=== PATIENT | male | born 1950 | race Caucasian/White ===

== ENCOUNTER 2016-11-09 11:47 | Inpatient (IN) | payer OTHER, MEDICARE ==
[~2016-11-09] VITALS: Ht 177.8 cm; Wt 89.7 kg
[~2016-11-09 11:47] MED LIST: ATEN100 PO; ATOR40TA49 PO; CANA1TAB4; CITA10TA4 PO; CITA20 PO; CLON.2 PO; GLIP5 PO; LORA-474 PO; MIRT30 PO; VALS160 PO; VALT500T PO; VITA400T2
[2016-11-09 11:49] VITALS: BP 200/91; PULSE 94; RESP 12; TEMP 97.9; O2SAT 98
--- NOTE | 2016-11-09 15:07 | PD ---
HPI Chief Complaint: Psychiatric Symptoms Time Seen by Provider: 15:04 Travel History International Travel<30 days: No Contact w/Intl Traveler<30days: No Traveled to known affect area: No History of Present Illness HPI Patient is a 66-year-old male with a history of depression, HIV and hypertension and diabetes presenting voluntarily for worsening depression and suicidal ideation. He states he has not been eating and drinking much lately has had worsening depression over the last several days. States he stopped taking his medications today in an attempt to harm himself but denies any ingestions or planning by other methods. He states that his HIV, diabetes and blood pressure are typically well controlled. Last CD4 and viral loads were done one month prior and he does not know the exact number but states that everything was normal. He denies any hallucinations. Endorses anhedonia and feels withdrawn from life. He denies headache, dizziness, fever, nausea, vomiting, chest pain, shortness of breath and abdominal pain. He denies tobacco , ethanol and illicit drug use. PFSH Past Medical History Anxiety: No Depression: Yes Cancer: No Cardiovascular Problems: No Diabetes: Yes (Type II) Headaches: No Immune Disorder: Yes (HIV) Psychiatric: No Seizures: No Thyroid Disease: Yes Social History Alcohol Use: No Tobacco Use: No Substance Use: No Allergies-Medications (Allergen,Severity, Reaction): Coded Allergies: No Known Allergies (Unverified , 11/09/16) Reported Meds & Prescriptions Reported Meds & Active Scripts Active Review of Systems Except as stated in HPI: all other systems reviewed are Neg Physical Exam Narrative GENERAL: Well-developed and well-nourished adult male in no acute distress. SKIN: Warm and dry. Slightly decreased turgor without tenting. HEAD: Normocephalic and atraumatic. EYES: PERRL bilaterally, 5mm. EOMI bilaterally. No injection or icterus present. No proptosis. Lids without edema or erythema. ENT: Buccal mucosa pink and moist. Oropharynx free of erythema, tonsillar hypertrophy, masses, swelling, asymmetry and exudates. Uvula midline and airway patent. NECK: Supple, no midline tenderness, crepitus or step-offs. Trachea midline, no JVD. No cervical or facial lymphadenopathy. CARDIOVASCULAR: Regular rate and rhythm without murmurs, rubs, clicks or gallops. Radial and posterior tibial pulses 2+ bilaterally. No pedal edema. RESPIRATORY: Clear to auscultation bilaterally with symmetrical rise and fall, no distress or use of accessory muscles. GASTROINTESTINAL: Non-tender, non-distended. Normal bowel sounds all 4 quadrants. No masses or organomegaly present. MUSCULOSKELETAL: No gait disturbances. Patient freely moving all four extremities spontaneously. Extremities without clubbing, cyanosis, or edema. No obvious deformities. NEUROLOGIC: CN II-XII grossly intact. Awake and alert. Motor grossly within normal limits. Normal speech. PSYCHIATRIC: Disinterested. Flat affect. Data Data Last Documented VS Vital Signs Date Time Temp Pulse Resp B/P Pulse Ox O2 Delivery O2 Flow Rate FiO2 11/09/16 16:41 78 18 175/98 99 Room Air 11/09/16 11:49 97.9 Orders Complete Blood Count With Diff (11/09/16 15:03) Comprehensive Metabolic Panel (11/09/16 15:03) Drug Screen, Random Urine (11/09/16 15:03) Alcohol (Ethanol) (11/09/16 15:03) Salicylates (Aspirin) (11/09/16 15:03) Tylenol (Acetaminophen) (11/09/16 15:03) Psych Screen (11/09/16 15:03) Atenolol (Tenormin) (11/09/16 15:15) Sodium Chlor 0.9% 1000 Ml Inj (Ns 1000 M (11/09/16 15:09) Labs Laboratory Tests Test 11/09/16 11/09/16 15:05 15:50 White Blood Count 10.4 TH/MM3 Red Blood Count 4.33 MIL/MM3 Hemoglobin 14.0 GM/DL Hematocrit 41.6 % Mean Corpuscular Volume 96.1 FL Mean Corpuscular Hemoglobin 32.2 PG Mean Corpuscular Hemoglobin 33.5 % Concent Red Cell Distribution Width 14.4 % Platelet Count 301 TH/MM3 Mean Platelet Volume 9.6 FL Neutrophils (%) (Auto) 61.4 % Lymphocytes (%) (Auto) 29.2 % Monocytes (%) (Auto) 7.4 % Eosinophils (%) (Auto) 1.3 % Basophils (%) (Auto) 0.7 % Neutrophils # (Auto) 6.4 TH/MM3 Lymphocytes # (Auto) 3.0 TH/MM3 Monocytes # (Auto) 0.8 TH/MM3 Eosinophils # (Auto) 0.1 TH/MM3 Basophils # (Auto) 0.1 TH/MM3 CBC Comment DIFF FINAL Differential Comment Sodium Level 143 MEQ/L Potassium Level 4.6 MEQ/L Chloride Level 110 MEQ/L Carbon Dioxide Level 23.5 MEQ/L Anion Gap 10 MEQ/L Blood Urea Nitrogen 24 MG/DL Creatinine 1.01 MG/DL Estimat Glomerular Filtration 74 ML/MIN Rate Random Glucose 113 MG/DL Calcium Level 9.5 MG/DL Total Bilirubin 0.3 MG/DL Aspartate Amino Transf 44 U/L (AST/SGOT) Alanine Aminotransferase 43 U/L (ALT/SGPT) Alkaline Phosphatase 36 U/L Total Protein 7.7 GM/DL Albumin 3.5 GM/DL Salicylates Level LESS THAN 1.7 MG/DL Acetaminophen Level LESS THAN 2.0 MCG/ML Ethyl Alcohol Level LESS THAN 3 MG/DL Urine Opiates Screen NEG Urine Barbiturates Screen NEG Urine Amphetamines Screen NEG Urine Benzodiazepines Screen NEG Urine Cocaine Screen NEG Urine Cannabinoids Screen NEG MDM Medical Decision Making Medical Screen Exam Complete: Yes Emergency Medical Condition: Yes Interpretation(s) Laboratory Tests Test 11/09/16 11/09/16 15:05 15:50 White Blood Count 10.4 TH/MM3 (4.0-11.0) Red Blood Count 4.33 MIL/MM3 (4.50-5.90) Hemoglobin 14.0 GM/DL (13.0-17.0) Hematocrit 41.6 % (39.0-51.0) Mean Corpuscular Volume 96.1 FL (80.0-100.0) Mean Corpuscular Hemoglobin 32.2 PG (27.0-34.0) Mean Corpuscular Hemoglobin 33.5 % Concent (32.0-36.0) Red Cell Distribution Width 14.4 % (11.6-17.2) Platelet Count 301 TH/MM3 (150-450) Mean Platelet Volume 9.6 FL (7.0-11.0) Neutrophils (%) (Auto) 61.4 % (16.0-70.0) Lymphocytes (%) (Auto) 29.2 % (9.0-44.0) Monocytes (%) (Auto) 7.4 % (0.0-8.0) Eosinophils (%) (Auto) 1.3 % (0.0-4.0) Basophils (%) (Auto) 0.7 % (0.0-2.0) Neutrophils # (Auto) 6.4 TH/MM3 (1.8-7.7) Lymphocytes # (Auto) 3.0 TH/MM3 (1.0-4.8) Monocytes # (Auto) 0.8 TH/MM3 (0-0.9) Eosinophils # (Auto) 0.1 TH/MM3 (0-0.4) Basophils # (Auto) 0.1 TH/MM3 (0-0.2) CBC Comment DIFF FINAL Differential Comment Sodium Level 143 MEQ/L (136-145) Potassium Level 4.6 MEQ/L (3.5-5.1) Chloride Level 110 MEQ/L (98-107) Carbon Dioxide Level 23.5 MEQ/L (21.0-32.0) Anion Gap 10 MEQ/L (5-15) Blood Urea Nitrogen 24 MG/DL (7-18) Creatinine 1.01 MG/DL (0.60-1.30) Estimat Glomerular Filtration 74 ML/MIN (>89) Rate Random Glucose 113 MG/DL (74-106) Calcium Level 9.5 MG/DL (8.5-10.1) Total Bilirubin 0.3 MG/DL (0.2-1.0) Aspartate Amino Transf 44 U/L (15-37) (AST/SGOT) Alanine Aminotransferase 43 U/L (12-78) (ALT/SGPT) Alkaline Phosphatase 36 U/L (45-117) Total Protein 7.7 GM/DL (6.4-8.2) Albumin 3.5 GM/DL (3.4-5.0) Salicylates Level LESS THAN 1.7 MG/DL (2.8-20.0) Acetaminophen Level LESS THAN 2.0 MCG/ML (10.0-30.0) Ethyl Alcohol Level LESS THAN 3 MG/DL (0-5) Urine Opiates Screen NEG (NEG) Urine Barbiturates Screen NEG (NEG) Urine Amphetamines Screen NEG (NEG) Urine Benzodiazepines Screen NEG (NEG) Urine Cocaine Screen NEG (NEG) Urine Cannabinoids Screen NEG (NEG) Differential Diagnosis Dehydration versus malnutrition versus SI versus depression versus anxiety versus bipolar disorder versus schizophrenia versus substance abuse versus mood disorder versus personality disorder versus adjustment disorder Narrative Course Patient is a 66-year-old male with a history of depression, HIV, retention and diabetes presenting voluntarily with worsening depression, anhedonia, feeling hopeless and passive suicide attempt by stopping his medications today. CD4 counts were done one month prior as well as viral load which were normal per patient. He is hypertensive with systolic 190 and heart rate is in the mid 90s on exam, he denies any chest pain or headache at this time. Was given 1 L normal saline bolus as he is slightly increased skin turgor and reports reduced intake. Also given his atenolol 100 mg by mouth. Ordered labs for psychiatric clearance. CBC shows WBC 10.4, RBC 4.33. Rule out conscious chloride 110. BUN 24, creatinine 1.01 which are chronic. AST 44, ALT 43, ALP 36. Ethanol, salicylates and Tylenol less than detectable. UDS negative. Patient's blood pressure was lowered to 175/98 and heart rate was 78 after his atenolol was given. He is medically cleared to proceed with psych evaluation. Diagnosis Primary Impression: Depression with suicidal ideation Additional Impression: Hypertension Qualified Code: I10 - Essential hypertension Condition: Stable Fitz Eddy III Nov 09, 2016 15:07
[2016-11-09] MEDS ORDERED: SODIUM CHLOR 0.9% 1000 ML INJ 1,000 ML IV SCH (15:09)
[2016-11-09] MEDS ORDERED: ATENOLOL 100 MG TAB PO ONE (15:15)
[2016-11-09 16:08] LABS: AUTOMATED NEUTROPHIL # 6.4 TH/MM3 (1.8-7.7); BASOPHIL # 0.1 TH/MM3 (0-0.2); BASOPHIL % 0.7 % (0.0-2.0); EOSINOPHIL # 0.1 TH/MM3 (0-0.4); EOSINOPHIL % 1.3 % (0.0-4.0); HEMATOCRIT 41.6 % (39.0-51.0); HEMO FLAGS DIFF FINAL; LYMPH % 29.2 % (9.0-44.0); MEAN CELL VOLUME 96.1 FL (80.0-100.0); MEAN CORPUSCULAR HEMOGLOBIN 32.2 PG (27.0-34.0); MEAN CORPUSCULAR HGB CONC 33.5 % (32.0-36.0); MONO % 7.4 % (0.0-8.0); NEUT % 61.4 % (16.0-70.0); PLATELET COUNT 301 TH/MM3 (150-450); RED BLOOD COUNT 4.33 MIL/MM3 (4.50-5.90); RED CELL DISTRIBUTION WIDTH 14.4 % (11.6-17.2); WHITE BLOOD COUNT 10.4 TH/MM3 (4.0-11.0)
[2016-11-09 16:26] LABS: AMPHETAMINE, URINE NEG (NEG); BARBITURATES, URINE NEG (NEG); COCAINE, URINE NEG (NEG)
[2016-11-09 16:32] LABS: ALKALINE PHOSPHATASE 36 U/L (45-117); ALT (GPT) 43 U/L (12-78); ANION GAP 10 MEQ/L (5-15); AST (GOT) 44 U/L (15-37); BICARBONATE 23.5 MEQ/L (21.0-32.0); BLOOD UREA NITROGEN 24 MG/DL (7-18); CHLORIDE 110 MEQ/L (98-107); GLOMERULAR FILTRATION RATE 74 ML/MIN (>89); POTASSIUM 4.6 MEQ/L (3.5-5.1); SODIUM (NA) 143 MEQ/L (136-145); TOTAL BILIRUBIN ADULT 0.3 MG/DL (0.2-1.0)
[2016-11-09 16:34] LABS: ACETAMINOPHEN LESS THAN 2.0 MCG/ML (10.0-30.0)
[2016-11-09 16:41] VITALS: BP 175/98; PULSE 78; RESP 18; O2SAT 99
[2016-11-09 19:39] VITALS: BP 147/86; PULSE 72; RESP 18; O2SAT 97
[2016-11-09] MEDS ORDERED: CANA1TAB PO (20:37)
[2016-11-09] MEDS ORDERED: MIRT30TA PO (20:37)
[2016-11-09] MEDS ORDERED: CITA10TA4 PO (20:37)
[2016-11-09] MEDS ORDERED: GLIP5TAB8 PO (20:37)
[2016-11-09] MEDS ORDERED: MAGNESIUM HYDROXIDE SUSP 30 ML CUP PO PRN (21:30)
[2016-11-09] MEDS ORDERED: LORazepam 2 MG/ML VIAL IM PRN (21:30)
[2016-11-09] MEDS ORDERED: ALUMINUM/MAGNESIUM/SIMETH 30 ML CUP PO PRN (21:30)
[2016-11-09] MEDS: MIRTAZAPINE 15 MG TAB PO SCH (22:05)
[2016-11-09 22:40] VITALS: BP 145/79; PULSE 72; RESP 16; TEMP 98.1
[2016-11-10 05:55] VITALS: BP 157/90; PULSE 73; RESP 16; TEMP 97.8; O2SAT 100
--- NOTE | 2016-11-10 11:58 | HHI.HP ---
Provisional Diagnosis Admission Date Nov 09, 2016 at 21:21 [place] I. Major depressive disorder chronic recurrent moderate [place] II. No diagnosis [place] III. History of HIV diabetes and high blood pressure [place] IV. Moderate stress difficulty coping [place] V. GAF of 45 Certification of Person's Competence To Provide Express and Informed Consent I have personally examined Cali Fountain , a person being served at [facility] on, Nov 10, 2016 11:44. Express and informed consent means consent voluntarily given in writing, by a competent person, after sufficient explanation and disclosure of the subject matter involved to enable the person to make a knowing and willful decision without any element of force, fraud, deceit, duress, or other form of constraint or coercion. This person is 18 years of age or older, is not now known to be incompetent to consent to treatment with a guardian advocate, and does not have a health care surrogate or proxy currently making medical treatment decisions. I have found this person to be one of the following: [x] Competent to provide express and informed consent, as defined above, for voluntary admission to this facility and is competent to provide express and informed consent for treatment. He/she has the consistent capacity to make well reasoned, willful, and knowing decisions concerning his or her medical or mental health treatment. The person fully and consistently understands the purpose of the admission for examination/placement and is fully capable of personally exercising all rights assured under [place] Incompetent to provide express and informed consent to voluntary admission, and this is incompetent to provide express and informed consent to treatment. The person must be transferred to involuntary status and a petition for a guardian advocate filed with the Circuit Court. [] Refusing to provide express and informed consent to voluntary admission but is competent to provide express and informed consent for treatment. The person must be discharged or transferred to involuntary status. Form shall be completed within 24 hours of a person's arrival at the receiving facility and filed in the clinical record of each person: 1. Admitted on a voluntary basis 2. Permitted to provide express and informed consent to his/her own treatment 3. Allowed to transfer from involuntary to voluntary status 4. Prior to permitting a person to consent to his or her own treatment after having been previously found incompetent to consent to treatment. History of Present Illness Capacity: Has Capacity HPI This is a 66-year-old white male who lives alone has a history of HIV diabetes and high blood pressure. He came came to the emergency room voluntarily for help because he has been increasingly feeling depressed frustrated lonely and isolated. He was feeling unhappy and had stopped taking all the medication in an attempt to end his life. Reportedly he does not have much in terms of the support he lives alone. He denied any plan for suicide. At times he feels helpless and hopeless and unmotivated. He feels like he has nothing to live for. For the past month or so he has no appetite he has been having difficulty sleeping. Has anhedonia. And his [id number] called the police and he came for help. At the present time patient denied any active auditory or visual hallucinations. He denies any suicidal ideation intentions or plan he reported that he made a mistake in not taking the medication his willing to take the medication. Patient claimed that he is afraid of dying. Patient denied any previous suicide attempts. Patient did not give any history of mood swings. Review of Systems Except as stated in HPI: all other systems reviewed are Neg Psychiatric: COMPLAINS OF: Mood changes, Depression, Suicidal Ideation Past Psych History Psychological trauma history Patient denied any physical verbal or sexual abuse growing up his childhood was happy Violence risk - others (6 mos) Patient denied Violence risk - self (6 mos) Patient has been increasingly feeling depressed and having trouble sleeping and with his appetite and have no desire to live but denied any suicidal ideation or plan Substance Abuse History Drugs/Alcohol past 12 months Patient denies any history of alcohol or drug abuse in the past 12 months Past Family Social History Coded Allergies: No Known Allergies (Unverified , 11/09/16) Reported Medications Citalopram 10 Mg Tab10 Mg PO DAILY #30 TAB Ref 0 11/09/16 Mirtazapine 30 Mg Tab30 Mg PO HS #30 TAB Ref 0 11/09/16 Glipizide 5 Mg Tab5 Mg PO BIDAC #60 TAB Ref 0 Take 30 minutes before a meal 11/09/16 Canagliflozin-Metformin (Invokamet)50-500 Mg Tab1 Tab PO BID #60 TAB Ref 0 Take with meals. Avoid ethanol. 11/09/16 Current Medications Medications (Trade) Dose Ordered Sig/Chung Route Start Time Stop Time Status Last Admin (Remeron) 30 mg HS PO 11/09/16 21:25 1/3/17 22:05 (Ativan) 1 mg Q6H PRN PO 11/09/16 21:30 (Ativan Inj) 1 mg Q6H PRN IM 11/09/16 21:30 (Tylenol) 650 mg Q4H PRN PO 11/09/16 21:30 (Milk Of Magnesia Liq) 30 ml DAILY PRN PO 11/09/16 21:30 (Mag-Al Plus Susp Liq) 30 ml Q6H PRN PO 11/09/16 21:30 Family History Negative for any emotional difficulty nervous breakdown suicide attempt or alcoholism Social History Patient was born in [place]. He has 3 brothers. He is number third. He was close to both of his parents will . His childhood was described as happy. He denied any physical verbal or sexual abuse growing up. He did finish high school and has Masters degree in education and worked as a teacher and retired. He has never been and has no children. He denied any history of alcohol or drug use and/or abuse or any legal difficulty. He has a history of depression and was hospitalized here. Patient's Strengths (min. 2) Patient is cooperative and willing to take the medication Physical Exam Patient denies any acute medical problem. Denied any chest pain shortness of breath or any other medical issues. Please see the emergency room evaluation for detail his vital signs are normal and stable Vital Signs Vital Signs Date Time Temp Pulse Resp B/P Pulse Ox O2 Delivery O2 Flow Rate FiO2 11/10/16 05:55 97.8 73 16 157/90 100 11/09/16 19:39 Room Air Mental Status Examination This is a 66-year-old white male who looks about the same as his stated age was alert oriented 3 cooperative casually dressed. His speech was slow coherent and appropriate. Without any evidence of loose associations or flights of ideas or pressure speech. His mood was described as feeling depressed and frustrated but denied any active and passive suicidal ideation intentions or plan. He is willing to take the medication and follow-up as an outpatient. Patient also denied any active auditory or visual hallucinations. No pramod delusions were noted. He seems to be of average intelligence with fairly good memory his insight is fair and his judgment seems to be okay on hypothetical situation. His gait was normal his language was normal his fund of knowledge was average Assessment & Plan Problem List: (1) Major depressive disorder, recurrent, moderate ICD Code: F33.1 Assessment & Plan Estimated LOS: 5 days. This is a 66-year-old white to male who was admitted because of increasing symptoms of depression anhedonia feeling hopeless and helpless. Patient had stopped taking the medication. We will titrate the medication and help lift her depression.. Admit to observe evaluate and treat. Titrate the medication according to patient's need and response. Patient will participate in all the therapeutic activity on the floor. We will resume his medication. Side effect another alternative treatment were explained to the patient. We will ask social worker assistant to assist in aftercare and discharge planning. Request HC Surrog/Guard Advoc?: No Oracio Juárez MD Nov 10, 2016 11:58
[2016-11-10 12:00] VITALS: BP 146/90; PULSE 86
[2016-11-10] MEDS: CITALOPRAM HYDROBROMIDE 40 MG TAB PO SCH (13:05)
--- NOTE | 2016-11-10 13:54 | PD.CONS ---
[facility] team Reason for Consult MEDICAL MANAGEMENT FOR HTN, DIABETES AND HIV Primary Care Physician No Primary Care Physician Diagnoses: History of Present Illness Patient is a 66-year-old male with primary history of depression, HIV, hypertension, DM who came in to the hospital voluntarily for worsening depression and suicidal ideation. As per ED report, patient states that he is not eating and drinking much lately, worsening depression over the last several days, stopped taking his medications and attempt to harm himself but denies any ingestion or planning by other methods. He is now admitted to inpatient psychiatry unit for further evaluation. Consulted for medical management. Patient seen today. States he's been doing well. Confirmed history of hypertension, diabetes, HIV. States that he doesn't want to take his HIV meds anymore - being followed by Dr. Reyes infectious disease. Patient is taking Genvoya - Elvitegravir, cobicistat, emtricitabine, and tenofovir. He agrees to continue taking metformin and glipizide. Patient denies pain and discomfort. Denies SOB/ dyspnea. Denies chestpain, palpitations, headaches, dizziness. Denies fevers, chills, n/v/d. Review of Systems Constitutional: DENIES: Fever, Chills, Change in appetite Endocrine: DENIES: Heat/cold intolerance Eyes: DENIES: Blurred vision, Eye pain Respiratory: DENIES: Cough, Wheezing, Sputum production, Shortness of breath Cardiovascular: DENIES: Chest pain, Palpitations, Dyspnea on Exertion, Lower Extremity Edema Gastrointestinal: DENIES: Abdominal pain, Bloody stools, Constipation, Diarrhea , Nausea, Vomiting Genitourinary: DENIES: Urinary frequency, Urgency Musculoskeletal: DENIES: Joint pain Neurologic: DENIES: Abnormal gait, Poor Balance Psychiatric: COMPLAINS OF: Depression Past Family Social History Allergies: Coded Allergies: No Known Allergies (Unverified , 11/09/16) Past Medical History HIV HTN DM Depression Thyroid disease HLD Past Surgical History Appendectomy Reported Medications Citalopram 10 mg by mouth daily Mirtazapine 30 mg by mouth daily at bedtime Canagliflozin andmetformin 15521 milligrams tab by mouth twice a day Glipizide 5 mg by mouth twice a day with meals Active Ordered Medications Current Medications Medications (Trade) Dose Ordered Sig/Chung Route Start Time Stop Time Status Last Admin (Remeron) 30 mg HS PO 11/09/16 21:25 11/09/16 22:05 (Ativan) 1 mg Q6H PRN PO 11/09/16 21:30 (Ativan Inj) 1 mg Q6H PRN IM 11/09/16 21:30 (Tylenol) 650 mg Q4H PRN PO 11/09/16 21:30 (Milk Of Magnesia Liq) 30 ml DAILY PRN PO 11/09/16 21:30 (Mag-Al Plus Susp Liq) 30 ml Q6H PRN PO 11/09/16 21:30 (CeleXA) 40 mg DAILY PO 11/10/16 12:00 11/10/16 13:05 Family History Noncontributory Social History Denies alcohol use Denies tobacco use Denies illicit drug use Physical Exam Vital Signs Vital Signs Date Time Temp Pulse Resp B/P Pulse Ox O2 Delivery O2 Flow Rate FiO2 11/10/16 12:00 86 146/90 11/10/16 05:55 97.8 73 16 157/90 100 11/09/16 22:40 98.1 72 16 145/79 11/09/16 19:39 72 18 147/86 97 Room Air 11/09/16 16:41 78 18 175/98 99 Room Air 11/09/16 15:30 78 20 Physical Exam GENERAL: This is a well-nourished, well-developed patient, in no apparent distress. SKIN: No rashes, ecchymoses or lesions. Cool and dry. HEAD: Atraumatic. Normocephalic. EYES: Pupils equal round and reactive. No scleral icterus. No injection or drainage. ENT: Nose without bleeding. Throat without erythema. Airway patent. NECK: Trachea midline. No JVD or lymphadenopathy. CARDIOVASCULAR: Regular rate and rhythm without murmurs, gallops, or rubs. RESPIRATORY: Clear to auscultation. Breath sounds equal bilaterally. No wheezes , rales, or rhonchi. GASTROINTESTINAL: Abdomen soft, non-tender, nondistended. Bowel sounds active 4 MUSCULOSKELETAL: Extremities without clubbing, cyanosis, or edema. NEUROLOGICAL: Awake and alert. Motor and sensory grossly within normal limits. Normal speech. Laboratory Laboratory Tests Test 11/09/16 11/09/16 15:05 15:50 White Blood Count 10.4 Red Blood Count 4.33 Hemoglobin 14.0 Hematocrit 41.6 Mean Corpuscular Volume 96.1 Mean Corpuscular Hemoglobin 32.2 Mean Corpuscular Hemoglobin 33.5 Concent Red Cell Distribution Width 14.4 Platelet Count 301 Mean Platelet Volume 9.6 Neutrophils (%) (Auto) 61.4 Lymphocytes (%) (Auto) 29.2 Monocytes (%) (Auto) 7.4 Eosinophils (%) (Auto) 1.3 Basophils (%) (Auto) 0.7 Neutrophils # (Auto) 6.4 Lymphocytes # (Auto) 3.0 Monocytes # (Auto) 0.8 Eosinophils # (Auto) 0.1 Basophils # (Auto) 0.1 CBC Comment DIFF FINAL Differential Comment Sodium Level 143 Potassium Level 4.6 Chloride Level 110 Carbon Dioxide Level 23.5 Anion Gap 10 Blood Urea Nitrogen 24 Creatinine 1.01 Estimat Glomerular Filtration 74 Rate Random Glucose 113 Calcium Level 9.5 Total Bilirubin 0.3 Aspartate Amino Transf 44 (AST/SGOT) Alanine Aminotransferase 43 (ALT/SGPT) Alkaline Phosphatase 36 Total Protein 7.7 Albumin 3.5 Salicylates Level LESS THAN 1.7 Acetaminophen Level LESS THAN 2.0 Ethyl Alcohol Level LESS THAN 3 Urine Opiates Screen NEG Urine Barbiturates Screen NEG Urine Amphetamines Screen NEG Urine Benzodiazepines Screen NEG Urine Cocaine Screen NEG Urine Cannabinoids Screen NEG Result Diagram: 11/09/16 1505 11/09/16 1505 Assessment and Plan Problem List: (1) Hypertension ICD Code: I10 Status: Chronic (2) Depression with suicidal ideation ICD Code: F32.9 Status: Acute (3) Major depressive disorder, recurrent, moderate ICD Code: F33.1 Status: Acute (4) DM type 2 (diabetes mellitus, type 2) ICD Code: E11.9 Status: Chronic (5) HTN (hypertension) ICD Code: I10 Status: Chronic Assessment and Plan Patient is a 66-year-old male with primary history of depression, HIV, hypertension, DM who came in to the hospital voluntarily for worsening depression and suicidal ideation. As per ED report, patient states that he is not eating and drinking much lately, worsening depression over the last several days, stopped taking his medications and attempt to harm himself but denies any ingestion or planning by other methods. He is now admitted to inpatient psychiatry unit for further evaluation. Consulted for medical management. Major depression, suicidal ideation - managed by psychiatry team HIV - refused to take home medication - Genvoya - Elvitegravir, cobicistat, emtricitabine, and tenofovir. He is being followed at outpatient by Dr. Reyes. - Counseled. States that he will retake the medication once he goes home. Encourage to continue taking home HIV meds - follow up outpatient HTN - patient given age 66, goal BP is less than < 150/90. - We discontinued Atenolol and will start patient on Amlodipine 5mg Qday and titrate to 10mg if needed. - Hydralazine 10mg Q8hrs PRN DM 2 - patient is taking canagloflozin/ metformin 50/500mg BID, glipizide 5mg BID. Will start metformin 500 twice a day, glipizide 5 mg twice a day. - Previous hemoglobin A1c 6.1 08/28/16 - Follow up without patient. Continue home meds when discharge. DVT prop early ambulation Thank you for this consultation. Will peripherally follow this patient with you. Written by Adam Marin, acting as scribe for Dr. Washington on 11/10/16 at 15:42. The documentation accurately reflects the work performed [id number] by me on at 15:42. Code Status Full code Discussed Condition With Patient, nursing Problem Qualifiers (1) Hypertension: Qualified Code: I10 - Essential hypertension Adam Duran Nov 10, 2016 13:54 Sourav Washington DO Nov 10, 2016 22:23
[2016-11-10] MEDS: LORazepam 1 MG TAB PO PRN ×2 (15:50→22:01)
[2016-11-10] MEDS ORDERED: hydrALAZINE HCL 10 MG TAB PO PRN (16:45)
[2016-11-10 18:50] VITALS: BP 198/94; PULSE 92; RESP 16; TEMP 98.2; O2SAT 95
[2016-11-10 19:21] VITALS: BP 156/86; PULSE 92; RESP 18; O2SAT 95
[2016-11-10 20:30] VITALS: BP 134/77; PULSE 86
[2016-11-10] MEDS: MIRTAZAPINE 15 MG TAB PO SCH (22:01)
[2016-11-11 06:10] VITALS: BP 139/86; PULSE 81; RESP 16; TEMP 97.5; O2SAT 99
[2016-11-11] MEDS: amLODIPine BESYLATE 5 MG TAB PO SCH (09:20)
[2016-11-11] MEDS: CITALOPRAM HYDROBROMIDE 40 MG TAB PO SCH (09:20)
--- NOTE | 2016-11-11 10:58 | HHI.PYPN ---
Subjective Remarks Patient was seen and discussed with the nurse staff industrial. Patient reported that he feels somewhat confused in his mind he does not know what to do. He is worried about finances. He is ambivalent. On one hand he says he has $800,000 but he does not know how to get [place] that money. He also reported that he cannot take care of himself he feels passively suicidal and wants to end his life he feels scared he claimed that his apartment is a mess and they will not allow him to come back his family has this on him. And he feels frustrated depressed. I will ask social work program coordinator to assist him. And adjust his medication to lift her depression. He was encouraged to participate in all the therapeutic activity on the floor. No side effects were complained Review of Systems Except as stated in HPI: all other systems reviewed are Neg Psychiatric: COMPLAINS OF: Anxiety, Confusion, Depression Objective Alert: Yes [place]: Person, Place Mood: Anxious, Depressed, Other (worried about finances and future) Affect: Labile, Restricted Memory Intact: Recent (mildly impaired) Hallucinations: Other (patient denies any active auditory or visual hallucinations) Delusions: No Delusion Type: Other (patient seems ambivalent and confused) Suicidal: Ideation (patient denied any active suicidal ideation intentions or plan here but he does not care about eating or living outside or can't take care of himself) Homicidal: Ideation (denies) Insight/Judgement Limited Remarks Attention and concentration poor. Gait normal. Language normal. Fund of knowledge average Vitals/IOs Vital Signs Date Time Temp Pulse Resp B/P Pulse Ox O2 Delivery O2 Flow Rate FiO2 11/11/16 06:10 97.5 81 16 139/86 99 11/09/16 19:39 Room Air Assessment & Plan Problem List: (1) Major depressive disorder, recurrent, moderate ICD Code: F33.1 Assessment & Plan Estimated LOS: days Justification for Cont. Inpt. Monitoring and titrating of the medication to stabilize his mood and lift his depression Request HC Surrog/Guard Advoc?: No Oracio Juárez MD Nov 11, 2016 10:58
[2016-11-11 19:38] VITALS: BP 134/67; PULSE 89; RESP 18; TEMP 97.6; O2SAT 98
[2016-11-11] MEDS: MIRTAZAPINE 15 MG TAB PO SCH (20:18)
[2016-11-11] MEDS ORDERED: QUEtiapine FUMARATE 100 MG TAB PO SCH (21:00)
[2016-11-12 06:07] VITALS: BP 156/85; PULSE 86; RESP 16; TEMP 97.6; O2SAT 98
[2016-11-12] MEDS: CITALOPRAM HYDROBROMIDE 40 MG TAB PO SCH (08:47)
[2016-11-12] MEDS: amLODIPine BESYLATE 5 MG TAB PO SCH (08:47)
--- NOTE | 2016-11-12 11:46 | HHI.PYPN ---
Subjective Remarks Patient was seen and discussed with the staff. Patient claimed that he feels worse very negative attitude throughout does not feel like anybody can help him nor he can help himself he remained somewhat confused anxious nervous he claimed that he is afraid of dying but denied any active suicidal ideation or plan he feels safe in the hospital he was anxious wringing his hands and he was worried about future but he could be reassured no behavior or management problem reported he tends to isolate himself and keeps to himself. business services clerk to assist him. Continue with the same treatment Review of Systems Except as stated in HPI: all other systems reviewed are Neg Psychiatric: COMPLAINS OF: Anxiety, Confusion, Depression Objective Alert: Yes [place]: Person, Place Mood: Anxious, Depressed, Other (worried about finances and future) Affect: Labile, Restricted Memory Intact: Recent (mildly impaired) Hallucinations: Other (patient denies any active auditory or visual hallucinations but remained somewhat confused and ambivalent) Delusions: No Delusion Type: Other (patient seems ambivalent and confused) Suicidal: Ideation (patient denied any active suicidal ideation intentions or plan here but he does not care about eating or living outside or can't take care of himself) Homicidal: Ideation (denies) Insight/Judgement Limited Vitals/IOs Vital Signs Date Time Temp Pulse Resp B/P Pulse Ox O2 Delivery O2 Flow Rate FiO2 11/12/16 06:07 97.6 86 16 156/85 98 11/09/16 19:39 Room Air Assessment & Plan Problem List: (1) Major depressive disorder, recurrent, moderate ICD Code: F33.1 Assessment & Plan Estimated LOS: days Justification for Cont. Inpt. Patient is unable to or unreliable in yousfi for safety and unable to care for himself Request HC Surrog/Guard Advoc?: No Oracio Juárez MD Nov 12, 2016 11:46
[2016-11-12] MEDS: LORazepam 1 MG TAB PO PRN (12:16)
--- NOTE | 2016-11-12 13:51 | HHI.PR ---
Addendum To [facility] Progress Not Reason for addendum: Additonal documentation (chart reviewed today. Vital signs also reviewed for BP trend. Continue with amlodipine use. BP within normal trend. Stable from hospitalist standpoint. We'll sign off on this patient. Please reconsult as needed.) Adam Duran Nov 12, 2016 13:51
[2016-11-12 18:54] VITALS: BP 136/70; PULSE 95; RESP 17; TEMP 98.6; O2SAT 100
[2016-11-12] MEDS: MIRTAZAPINE 15 MG TAB PO SCH (20:29)
[2016-11-13 05:56] VITALS: BP 135/75; PULSE 76; RESP 16; TEMP 97.6
[2016-11-13] MEDS: CITALOPRAM HYDROBROMIDE 40 MG TAB PO SCH (09:47)
[2016-11-13] MEDS: amLODIPine BESYLATE 5 MG TAB PO SCH (09:47)
[2016-11-13 19:42] VITALS: BP 133/77; PULSE 106; RESP 16; TEMP 97.4; O2SAT 98
[2016-11-13] MEDS: MIRTAZAPINE 15 MG TAB PO SCH (21:36)
--- NOTE | 2016-11-13 21:36 | HHI.PYPN ---
Subjective Remarks Pt seen and discussed with staff. Pt has been isolative to his room and at times exhibits bizarre behavior. He is depressed with poor self-care. No medication side effects. Objective Alert: Yes [place]: Person, Place Mood: Anxious, Depressed, Other Affect: Restricted Memory Intact: Recent (mildly impaired) Hallucinations: Other (denies) Delusions: No Delusion Type: Other (patient seems ambivalent and confused) Suicidal: Ideation (passive) Homicidal: Ideation (denies) Insight/Judgement poor Vitals/IOs Vital Signs Date Time Temp Pulse Resp B/P Pulse Ox O2 Delivery O2 Flow Rate FiO2 11/13/16 19:42 97.4 106 16 133/77 98 11/09/16 19:39 Room Air Assessment & Plan Problem List: (1) Major depressive disorder, recurrent, moderate Assessment & Plan continue current tx plan. Estimated LOS: days Justification for Cont. Inpt. impairment in self care Request HC Surrog/Guard Advoc?: No Chioma Gallego MD Nov 13, 2016 21:35
[2016-11-14 05:58] VITALS: BP 129/77; PULSE 98; RESP 16; TEMP 97.7
[2016-11-14] MEDS: amLODIPine BESYLATE 5 MG TAB PO SCH (08:54)
[2016-11-14] MEDS: CITALOPRAM HYDROBROMIDE 40 MG TAB PO SCH (08:54)
--- NOTE | 2016-11-14 18:23 | HHI.PYPN ---
Subjective Remarks Pt seen and discussed with staff. Pt remains depressed but has been less isolative today. No SI/HI. Compliant with medications. No side effeccts. Objective Alert: Yes [place]: Person, Place Mood: Depressed, Other Affect: Restricted Memory Intact: Immediate, Recent, Remote Hallucinations: Other (denies) Delusions: No Delusion Type: Other (patient seems ambivalent and confused) Suicidal: Ideation (passive) Homicidal: Ideation (denies) Insight/Judgement poor Vitals/IOs Vital Signs Date Time Temp Pulse Resp B/P Pulse Ox O2 Delivery O2 Flow Rate FiO2 11/14/16 05:58 97.7 98 16 129/77 11/13/16 19:42 98 Assessment & Plan Problem List: (1) Major depressive disorder, recurrent, moderate ICD Code: F33.1 Assessment & Plan continue current tx plan. Estimated LOS: days Justification for Cont. Inpt. impairments in self care. risk of decompensating Request HC Surrog/Guard Advoc?: No Chioma Gallego MD Nov 14, 2016 18:23
[2016-11-14 19:37] VITALS: BP 137/81; PULSE 122; RESP 18; TEMP 97.3; O2SAT 99
[2016-11-14] MEDS: MIRTAZAPINE 15 MG TAB PO SCH (21:00)
[2016-11-15 05:30] VITALS: BP 109/70; PULSE 97; RESP 16; TEMP 97.8
[2016-11-15 05:33] VITALS: BP 168/89; PULSE 88; RESP 18; TEMP 97.6
[2016-11-15] MEDS: amLODIPine BESYLATE 5 MG TAB PO SCH (09:00)
[2016-11-15] MEDS: CITALOPRAM HYDROBROMIDE 40 MG TAB PO SCH (09:00)
--- NOTE | 2016-11-15 11:17 | HHI.PYPN ---
Subjective Remarks Patient was seen and discussed with the staffing rn. Patient remains somewhat ambivalent confused isolative scared. And worried about future. He also was worried that somebody would enter his apartment and he has hot water turned and so hard that they might get born in this start the water he could be reassured. He was pacing and anxious. He cannot live alone he is compliant in taking medication. No side effects were complained we will adjust the medication. client services representative to assist him in aftercare and discharge planning Review of Systems Except as stated in HPI: all other systems reviewed are Neg Psychiatric: COMPLAINS OF: Anxiety, Confusion, Mood changes, Depression, Delusions Objective Alert: Yes [place]: Person, Place Mood: Anxious, Depressed, Other Affect: Restricted Memory Intact: Immediate, Recent, Remote Hallucinations: Other (denies) Delusions: No Delusion Type: Other (patient seems ambivalent and confused and guarded and negative thoughts) Suicidal: Ideation (passive but feels safe in the hospital) Homicidal: Ideation (denies) Insight/Judgement Limited Remarks Attention and concentration poor. Gait normal. Language normal. Fund of knowledge average Vitals/IOs Vital Signs Date Time Temp Pulse Resp B/P Pulse Ox O2 Delivery O2 Flow Rate FiO2 11/15/16 05:33 97.6 88 18 168/89 11/14/16 19:37 99 Assessment & Plan Problem List: (1) Major depressive disorder, recurrent, moderate ICD Code: F33.1 Assessment & Plan Estimated LOS: days Justification for Cont. Inpt. Risk of decompensation and safety issue patient might decompensate at a lower level of care Request HC Surrog/Guard Advoc?: No Oracio Juárez MD Nov 15, 2016 11:17
[2016-11-15 19:38] VITALS: BP 153/87; PULSE 56; RESP 17; TEMP 98.4; O2SAT 99
[2016-11-15] MEDS ORDERED: ARIPiprazole 10 MG TAB PO SCH (21:00)
[2016-11-15] MEDS: MIRTAZAPINE 15 MG TAB PO SCH (21:16)
[2016-11-16 06:58] VITALS: BP 133/66; PULSE 76; RESP 18; TEMP 98
[2016-11-16] MEDS: CITALOPRAM HYDROBROMIDE 40 MG TAB PO SCH (09:04)
[2016-11-16] MEDS: amLODIPine BESYLATE 5 MG TAB PO SCH (09:04)
--- NOTE | 2016-11-16 11:52 | HHI.PYPN ---
Subjective Remarks Patient was seen and discussed with the member of technical staff. At least last night patient did admit to take his medication and slept little better than before but still has been having trouble sleeping and resting. Patient denies any active auditory or visual hallucinations but remained somewhat confused and worried about future not being able to get hold of his money. He still is afraid of living alone and would like to go to an assisted living facility but he is ambivalent about it. No behavior or management problem reported. He was encouraged to continue to take medication and participate in all the therapeutic activity. banking services advisor to assist. Review of Systems Except as stated in HPI: all other systems reviewed are Neg Psychiatric: COMPLAINS OF: Anxiety, Confusion, Mood changes, Depression, Delusions Objective Alert: Yes [place]: Person, Place Mood: Anxious, Depressed, Other Affect: Restricted Memory Intact: Immediate, Recent, Remote Hallucinations: Other (denies) Delusions: No Delusion Type: Other (patient seems ambivalent and confused and guarded and negative thoughts) Suicidal: Ideation (passive but feels safe in the hospital) Homicidal: Ideation (denies) Insight/Judgement Limited to fair Vitals/IOs Vital Signs Date Time Temp Pulse Resp B/P Pulse Ox O2 Delivery O2 Flow Rate FiO2 11/16/16 06:58 98.0 76 18 133/66 11/15/16 19:38 99 Assessment & Plan Problem List: (1) Major depressive disorder, recurrent, moderate ICD Code: F33.1 Assessment & Plan Estimated LOS: days Justification for Cont. Inpt. Risk of decompensation at a lower level of care Request HC Surrog/Guard Advoc?: No Oracio Juárez MD Nov 16, 2016 11:52
[2016-11-16 19:37] VITALS: BP 151/93; PULSE 107; RESP 18; TEMP 98; O2SAT 97
[2016-11-16] MEDS: ARIPiprazole 15 MG TAB PO SCH (20:28)
[2016-11-16] MEDS: MIRTAZAPINE 15 MG TAB PO SCH (20:28)
[2016-11-17 06:21] VITALS: BP 149/94; PULSE 100; RESP 18; TEMP 98; O2SAT 97
[2016-11-17 07:48] VITALS: BP 138/90
[2016-11-17] MEDS: amLODIPine BESYLATE 5 MG TAB PO SCH (09:00)
[2016-11-17] MEDS: CITALOPRAM HYDROBROMIDE 40 MG TAB PO SCH (09:00)
--- NOTE | 2016-11-17 11:11 | HHI.PYPN ---
Subjective Remarks Patient was seen and discussed with the staff services manager. Patient reported that he has been having some difficulty with his sleep and he wakes up in the middle of the night and could not go back to sleep. He is then worried about his future he is more feeling hopeless helpless and pessimistic but at least he is taking the medication and started to feel more hopeful. No behavior or management problem reported. No side effects were complained. He was encouraged to participate in all the therapeutic activity on the floor. And social services analyst to assist him. Continue with the same treatment Review of Systems Except as stated in HPI: all other systems reviewed are Neg Psychiatric: COMPLAINS OF: Anxiety, Mood changes, Depression, Delusions Objective Alert: Yes [place]: Person, Place Mood: Anxious, Depressed Affect: Restricted Memory Intact: Immediate, Recent (mildly impaired), Remote Hallucinations: Other (denies any auditory or visual hallucination at this time ) Delusions: No Delusion Type: Other (patient seems ambivalent and confused and guarded and negative thoughts) Suicidal: Ideation (passive but feels safe in the hospital and mildly hopeful) Homicidal: Ideation (denies) Insight/Judgement Limited Vitals/IOs Vital Signs Date Time Temp Pulse Resp B/P Pulse Ox O2 Delivery O2 Flow Rate FiO2 11/17/16 07:48 138/90 11/17/16 06:21 98.0 100 18 97 Assessment & Plan Problem List: (1) Major depressive disorder, recurrent, moderate ICD Code: F33.1 Assessment & Plan Estimated LOS: days Justification for Cont. Inpt. Risk of DrSebastien decompensation and monitoring of the medication to help lift her depression and confusion Request HC Surrog/Guard Advoc?: No Oracio Juárez MD Nov 17, 2016 11:11
[2016-11-17 18:41] VITALS: BP 157/89; PULSE 108; RESP 18; TEMP 97.6; O2SAT 97
[2016-11-17] MEDS: MIRTAZAPINE 15 MG TAB PO SCH (20:12)
[2016-11-17] MEDS: ARIPiprazole 15 MG TAB PO SCH (20:12)
[2016-11-18 06:18] VITALS: BP 116/65; PULSE 94; RESP 16; TEMP 97.8
[2016-11-18] MEDS: amLODIPine BESYLATE 5 MG TAB PO SCH (08:30)
[2016-11-18] MEDS: CITALOPRAM HYDROBROMIDE 40 MG TAB PO SCH (08:30)
--- NOTE | 2016-11-18 10:55 | HHI.PYPN ---
Subjective Remarks Patient was seen and discussed with the technical staff engineer. Patient claimed that he has been feeling little better with the medication no side effects were complained he is not as negative as he was before. He feels hopeful about the future and wants to go home he denied any suicidal ideation intentions or plan. Denied any active auditory or visual hallucinations. No behavior or management problem reported. Advised to continue with the same treatment. health services manager to assist. Continue the same treatment Review of Systems Except as stated in HPI: all other systems reviewed are Neg Psychiatric: COMPLAINS OF: Mood changes, Depression Objective Alert: Yes [place]: Person, Place Mood: Anxious, Depressed Affect: Restricted Memory Intact: Immediate, Recent (mildly impaired), Remote Hallucinations: Other (denies any auditory or visual hallucination at this time ) Delusions: No Delusion Type: Other (patient seems ambivalent and confused and guarded and feels more positive) Suicidal: Ideation (passive but feels safe in the hospital and mildly hopeful) Homicidal: Ideation (denies) Insight/Judgement Limited Remarks Concentration and attention improving. Gait normal. Fund of knowledge average. Speech or language normal Vitals/IOs Vital Signs Date Time Temp Pulse Resp B/P Pulse Ox O2 Delivery O2 Flow Rate FiO2 11/18/16 06:18 97.8 94 16 116/65 11/17/16 18:41 97 Assessment & Plan Problem List: (1) Major depressive disorder, recurrent, moderate ICD Code: F33.1 Assessment & Plan Estimated LOS: days Justification for Cont. Inpt. Risk of decompensation and monitoring of the medication Request HC Surrog/Guard Advoc?: No Oracio Juárez MD Nov 18, 2016 10:55
[2016-11-18 19:16] VITALS: BP 132/72; PULSE 109; RESP 16; TEMP 98.6; O2SAT 99
[2016-11-18] MEDS: MIRTAZAPINE 15 MG TAB PO SCH (20:31)
[2016-11-18] MEDS: ARIPiprazole 15 MG TAB PO SCH (20:31)
[2016-11-19 06:17] VITALS: BP 144/85; PULSE 84; RESP 17; TEMP 98.4
[2016-11-19] MEDS: CITALOPRAM HYDROBROMIDE 40 MG TAB PO SCH (08:50)
[2016-11-19] MEDS: amLODIPine BESYLATE 5 MG TAB PO SCH (08:50)
--- NOTE | 2016-11-19 11:16 | HHI.PYPN ---
Subjective Remarks Patient was seen and discussed with the staff midwife/apprenticeship director. Patient seems like he is improving a little bit and taking the medication but still is ambivalent and feels frustrated that he has no other choices. He does not want our social studies teacher to assist him in finding alternative place like [facility]. He denied any active auditory or visual hallucinations but remained somewhat confused and negativistic but less than before. No side effects were complained from the medication. He was encouraged to participate in all the therapeutic activity and take the medication. Continue with the same treatment Review of Systems Except as stated in HPI: all other systems reviewed are Neg Psychiatric: COMPLAINS OF: Confusion, Mood changes, Depression, Delusions Objective Alert: Yes [place]: Person, Place Mood: Anxious, Depressed Affect: Restricted Memory Intact: Immediate, Recent (mildly impaired), Remote Hallucinations: Other (denies any auditory or visual hallucination at this time ) Delusions: No Delusion Type: Other (patient seems ambivalent and confused and guarded and feels more positive) Suicidal: Ideation (passive but feels safe in the hospital and mildly hopeful) Homicidal: Ideation (denies) Insight/Judgement Limited Vitals/IOs Vital Signs Date Time Temp Pulse Resp B/P Pulse Ox O2 Delivery O2 Flow Rate FiO2 11/19/16 06:17 98.4 84 17 144/85 11/18/16 19:16 99 Assessment & Plan Problem List: (1) Major depressive disorder, recurrent, moderate ICD Code: F33.1 Assessment & Plan Estimated LOS: days Justification for Cont. Inpt. It is for safety monitoring of the medication and risk of decompensation Request HC Surrog/Guard Advoc?: No Oracio Juárez MD Nov 19, 2016 11:16
[2016-11-19 19:41] VITALS: BP 132/83; PULSE 105; RESP 17; TEMP 98.7
[2016-11-19] MEDS: ARIPiprazole 15 MG TAB PO SCH (20:29)
[2016-11-19] MEDS: MIRTAZAPINE 15 MG TAB PO SCH (20:29)
[2016-11-20 05:21] VITALS: BP 127/73; PULSE 88; RESP 16; TEMP 98
[2016-11-20] MEDS: CITALOPRAM HYDROBROMIDE 40 MG TAB PO SCH (09:03)
[2016-11-20] MEDS: amLODIPine BESYLATE 5 MG TAB PO SCH (09:03)
--- NOTE | 2016-11-20 13:57 | HHI.PYPN ---
Subjective Remarks Patient was seen and case discussed with nursing. Patient is anxious and blunted during the interview. Vague with his symptoms. Describes his mood as "down." Denies suicidal ideations thought or plan. Continues to refuse Seroquel. Behaving well on the unit Objective Alert: Yes [place]: Person, Place Mood: Anxious, Depressed Affect: Restricted Memory Intact: Immediate, Recent (mildly impaired), Remote Hallucinations: Other (denies any auditory or visual hallucination at this time ) Delusions: No Delusion Type: Other (patient seems ambivalent and confused and guarded and feels more positive) Suicidal: Ideation (passive but feels safe in the hospital and mildly hopeful) Homicidal: Ideation (denies) Insight/Judgement Poor Vitals/IOs Vital Signs Date Time Temp Pulse Resp B/P Pulse Ox O2 Delivery O2 Flow Rate FiO2 11/20/16 05:21 98.0 88 16 127/73 11/18/16 19:16 99 Assessment & Plan Problem List: (1) Major depressive disorder, recurrent, moderate ICD Code: F33.1 Assessment & Plan DC Seroquel given refusal Justification for Cont. Inpt. Patient would decompensate in a less restrictive setting Request HC Surrog/Guard Advoc?: No Danyel Benavidez DO Nov 20, 2016 13:57
[2016-11-20 19:05] VITALS: BP 141/79; PULSE 106; RESP 16; O2SAT 99
[2016-11-20] MEDS: ARIPiprazole 15 MG TAB PO SCH (21:00)
[2016-11-20] MEDS: MIRTAZAPINE 15 MG TAB PO SCH (21:05)
[2016-11-21 05:38] VITALS: BP 167/86; PULSE 87; RESP 16; TEMP 97.2; O2SAT 98
[2016-11-21] MEDS: amLODIPine BESYLATE 5 MG TAB PO SCH (08:52)
[2016-11-21] MEDS: CITALOPRAM HYDROBROMIDE 40 MG TAB PO SCH (08:52)
--- NOTE | 2016-11-21 15:15 | HHI.PYPN ---
Subjective Remarks Patient was seen and case discussed with nursing. Patient is largely seclusive to room. Mood is depressed and affect is blunted. Patient was asked that he wants a medical consult to resume his HIV medications. He refuses. Blood pressure is mildly elevated with one reading and we will get a every 6 hours. Denies suicidal ideations thought content or plan Objective Alert: Yes [place]: Person, Place Mood: Anxious, Depressed Affect: Restricted Memory Intact: Immediate, Recent (mildly impaired), Remote Hallucinations: Other (denies any auditory or visual hallucination at this time ) Delusions: No Delusion Type: Other (patient seems ambivalent and confused and guarded and feels more positive) Suicidal: Ideation (passive but feels safe in the hospital and mildly hopeful) Homicidal: Ideation (denies) Insight/Judgement Poor Vitals/IOs Vital Signs Date Time Temp Pulse Resp B/P Pulse Ox O2 Delivery O2 Flow Rate FiO2 11/21/16 05:38 97.2 87 16 167/86 98 Assessment & Plan Problem List: (1) Major depressive disorder, recurrent, moderate ICD Code: F33.1 Assessment & Plan Continue current treatment plan Justification for Cont. Inpt. Patient would decompensate in a less restrictive setting Request HC Surrog/Guard Advoc?: No Danyel Benavidez DO Nov 21, 2016 15:15
[2016-11-21 18:47] VITALS: BP 147/86; PULSE 99; RESP 18; O2SAT 98
[2016-11-21] MEDS: ARIPiprazole 15 MG TAB PO SCH (21:00)
[2016-11-21] MEDS: MIRTAZAPINE 15 MG TAB PO SCH (21:03)
[2016-11-22 01:00] VITALS: BP 158/90; PULSE 102; RESP 18; TEMP 98.8; O2SAT 98
[2016-11-22 05:50] VITALS: BP 122/78; PULSE 91; RESP 17; TEMP 98; O2SAT 98
[2016-11-22] MEDS: CITALOPRAM HYDROBROMIDE 40 MG TAB PO SCH (09:02)
[2016-11-22] MEDS: amLODIPine BESYLATE 5 MG TAB PO SCH (09:02)
--- NOTE | 2016-11-22 10:55 | HHI.PYPN ---
Subjective Remarks Patient was seen and case discussed with nursing. Patient remains isolative and flat. No social interaction and seclusive to self. Mood is "down." He is hopeless towards the future. Asked about what he thinks about all days as "depressed about life." He is willing to restart his HIV medications. Denies suicidal ideations thought or plan Objective Alert: Yes [place]: Person, Place Mood: Anxious, Depressed Affect: Restricted Memory Intact: Immediate, Recent (mildly impaired), Remote Hallucinations: Other (denies any auditory or visual hallucination at this time ) Delusions: No Delusion Type: Other (patient seems ambivalent and confused and guarded and feels more positive) Suicidal: Ideation (passive but feels safe in the hospital and mildly hopeful) Homicidal: Ideation (denies) Insight/Judgement Poor Vitals/IOs Vital Signs Date Time Temp Pulse Resp B/P Pulse Ox O2 Delivery O2 Flow Rate FiO2 11/22/16 05:50 98.0 91 17 122/78 98 Assessment & Plan Problem List: (1) Major depressive disorder, recurrent, moderate ICD Code: F33.1 Assessment & Plan Consult medicine for medication reconciliation Justification for Cont. Inpt. Patient will decompensate in a less restrictive setting Request HC Surrog/Guard Advoc?: No Danyel Benavidez DO Nov 22, 2016 10:55
[2016-11-22 12:00] VITALS: BP 129/81; PULSE 113; RESP 20; TEMP 98.4; O2SAT 96
[2016-11-22 15:22] LABS: ANION GAP 6 MEQ/L (5-15); BICARBONATE 28.7 MEQ/L (21.0-32.0); BLOOD UREA NITROGEN 14 MG/DL (7-18); CHLORIDE 105 MEQ/L (98-107); GLOMERULAR FILTRATION RATE 95 ML/MIN (>89); POTASSIUM 3.8 MEQ/L (3.5-5.1); SODIUM (NA) 140 MEQ/L (136-145)
--- NOTE | 2016-11-22 15:34 | HHI.PR ---
Subjective Remarks Follow-up HIV, hypertension, DM. The patient seen at inpatient psychiatric unit. Appears calm. Patient is now willing to seek his HIV medication will unable to give exact dosing. Denies chest pain nausea vomiting diarrhea constipation fevers or chills. Objective Vitals Vital Signs Date Time Temp Pulse Resp B/P Pulse Ox O2 Delivery O2 Flow Rate FiO2 11/22/16 12:00 98.4 113 20 129/81 96 11/22/16 05:50 98.0 91 17 122/78 98 11/22/16 01:00 98.8 102 18 158/90 98 11/21/16 18:47 99 18 147/86 98 Result Diagram: 11/22/16 1409 Objective Remarks GENERAL: This is a well-nourished, well-developed patient, in no apparent distress. SKIN: No rashes, ecchymoses or lesions. Cool and dry. EYES: EOMI No scleral icterus. No injection or drainage. CARDIOVASCULAR: Regular rate and rhythm without murmurs, gallops, or rubs. RESPIRATORY: Clear to auscultation. Breath sounds equal bilaterally. No wheezes , rales, or rhonchi. GASTROINTESTINAL: Abdomen soft, non-tender, nondistended. Bowel sounds active 4 MUSCULOSKELETAL: Extremities without clubbing, cyanosis, or edema. NEUROLOGICAL: Awake and alert. Motor and sensory grossly within normal limits. Normal speech. A/P Problem List: (1) Hypertension ICD Code: I10 Status: Chronic (2) Depression with suicidal ideation ICD Code: F32.9 Status: Acute (3) Major depressive disorder, recurrent, moderate ICD Code: F33.1 Status: Acute (4) DM type 2 (diabetes mellitus, type 2) ICD Code: E11.9 Status: Chronic (5) HTN (hypertension) ICD Code: I10 Status: Chronic Assessment and Plan Patient is a 66-year-old male with primary history of depression, HIV, hypertension, DM who came in to the hospital voluntarily for worsening depression and suicidal ideation. As per ED report, patient states that he is not eating and drinking much lately, worsening depression over the last several days, stopped taking his medications and attempt to harm himself but denies any ingestion or planning by other methods. He is now admitted to inpatient psychiatry unit for further evaluation. Consulted for medical management. Major depression, suicidal ideation - managed by psychiatry team HIV - had refused to take home medication earlier in his hospitalization on 2016. Patient now agreeable to taking his HIV medication. - He is followed at outpatient by Dr. Reyes.- Request RN to call Dr. Reyes' s office to verify medication and dosing -Check renal indices and LFTs, and if within normal limits plan to restart medication once we have the exact dosing verified - Patient will also need to follow up outpatient HTN - patient given age 66, goal BP is less than < 150/90. -Continue Amlodipine - Hydralazine 10mg Q8hrs PRN - Continue to monitor vital signs DM 2 - patient is taking canagliflozin/ metformin 50/500mg BID, glipizide 5mg BID. Will start metformin 500 twice a day, glipizide 5 mg twice a day. - Previous hemoglobin A1c 6.1 08/28/16 - Follow up without patient. Continue home meds when discharge. DVT prop ambulation Discussed plan of care with patient and RN. Written by Melissa Franks, acting as scribe for Dr. Haines on 11/22/16 at 13:31. The documentation accurately reflects the work performed [id number] by me on 11/22/16 at 13:31. Problem Qualifiers (1) Hypertension: Qualified Code: I10 - Essential hypertension Melissa rFanks Nov 22, 2016 15:33 Lilliana Haines MD Nov 23, 2016 16:48
[2016-11-22 15:58] LABS: AST (GOT) 41 U/L (15-37)
[2016-11-22 16:00] LABS: ALKALINE PHOSPHATASE 71 U/L (45-117); ALT (GPT) 87 U/L (12-78); INDIRECT BILIRUBIN 0.1 MG/DL (0.0-0.8); TOTAL BILIRUBIN ADULT 0.2 MG/DL (0.2-1.0)
[2016-11-22 19:11] VITALS: BP 133/86; PULSE 101; RESP 18; TEMP 97.8; O2SAT 98
[2016-11-22] MEDS: ARIPiprazole 15 MG TAB PO SCH (20:15)
[2016-11-22] MEDS: MIRTAZAPINE 15 MG TAB PO SCH (20:15)
[2016-11-23 06:09] VITALS: BP 145/75; PULSE 90; RESP 16; TEMP 98
[2016-11-23] MEDS: CITALOPRAM HYDROBROMIDE 40 MG TAB PO SCH (09:03)
[2016-11-23] MEDS: amLODIPine BESYLATE 5 MG TAB PO SCH (09:03)
--- NOTE | 2016-11-23 11:49 | HHI.PYPN ---
Subjective Remarks Patient was seen and discussed with the staff weapons officer. He claimed that he has been feeling little bit better he is more positive dorsal life denied any active suicidal ideation intentions or plan. He wants to restart his HIV medication will get the list from his medical doctor. No behavior or management problem reported. No side effects were complained. His affect was slightly brighter but he keeps to himself in his room. He was in encouraged to participate in all the therapeutic activity on the floor Review of Systems Except as stated in HPI: all other systems reviewed are Neg Psychiatric: COMPLAINS OF: Anxiety, Mood changes, Depression, Delusions Objective Alert: Yes [place]: Person, Place Mood: Anxious, Depressed Affect: Restricted Memory Intact: Immediate, Recent (mildly impaired), Remote Hallucinations: Other (denies any auditory or visual hallucination at this time ) Delusions: No Delusion Type: Other (patient seems ambivalent and confused and guarded and feels more positive) Suicidal: Ideation (passive but feels safe in the hospital and mildly hopeful) Homicidal: Ideation (denies) Insight/Judgement Fair to limited Labs Test 11/22/16 14:09 Sodium Level 140 MEQ/L Potassium Level 3.8 MEQ/L Chloride Level 105 MEQ/L Carbon Dioxide Level 28.7 MEQ/L Anion Gap 6 MEQ/L Blood Urea Nitrogen 14 MG/DL Creatinine 0.82 MG/DL Estimat Glomerular Filtration 95 ML/MIN Rate Random Glucose 136 MG/DL Calcium Level 8.7 MG/DL Total Bilirubin 0.2 MG/DL Direct Bilirubin LESS THAN 0.1 MG/DL Indirect Bilirubin 0.1 MG/DL Aspartate Amino Transf 41 U/L (AST/SGOT) Alanine Aminotransferase 87 U/L (ALT/SGPT) Alkaline Phosphatase 71 U/L Total Protein 7.3 GM/DL Albumin 3.1 GM/DL Vitals/IOs Vital Signs Date Time Temp Pulse Resp B/P Pulse Ox O2 Delivery O2 Flow Rate FiO2 11/23/16 06:09 98.0 90 16 145/75 11/22/16 19:11 98 Assessment & Plan Problem List: (1) Major depressive disorder, recurrent, moderate ICD Code: F33.1 Assessment & Plan Estimated LOS: days Justification for Cont. Inpt. Monitoring of the medication and risk for safety Request HC Surrog/Guard Advoc?: No Oracio Juárez MD Nov 23, 2016 11:49
[2016-11-23] MEDS ORDERED: ASPI-147 PO (16:50)
[2016-11-23] MEDS ORDERED: VALT1TAB PO (16:50)
[2016-11-23] MEDS ORDERED: REST15CA PO (16:50)
[2016-11-23] MEDS ORDERED: [UNRECOGNIZED DRUG - CODE] TOPICAL (16:50)
[2016-11-23] MEDS ORDERED: ROSU5 PO (16:50)
[2016-11-23] MEDS ORDERED: ATOR40TA16 PO (16:50)
[2016-11-23] MEDS ORDERED: ELVI1TAB3 PO (16:50)
[2016-11-23] MEDS ORDERED: VALS1TAB70 PO (16:50)
[2016-11-23] MEDS ORDERED: ERGO1CAP30 PO (16:50)
[2016-11-23] MEDS ORDERED: ATEN100T PO (16:50)
[2016-11-23] MEDS ORDERED: CHOL1CAP2 PO (16:50)
[2016-11-23] MEDS ORDERED: CLON0.2T PO (16:50)
[2016-11-23 20:00] VITALS: BP 135/83; PULSE 103; RESP 18; TEMP 98.6
[2016-11-23] MEDS: MIRTAZAPINE 15 MG TAB PO SCH (20:29)
[2016-11-23] MEDS: ARIPiprazole 15 MG TAB PO SCH (20:29)
[2016-11-24 06:09] VITALS: BP 132/82; PULSE 71; RESP 18; TEMP 99; O2SAT 92
[2016-11-24] MEDS: CITALOPRAM HYDROBROMIDE 40 MG TAB PO SCH (08:55)
[2016-11-24] MEDS: amLODIPine BESYLATE 5 MG TAB PO SCH (08:55)
--- NOTE | 2016-11-24 13:36 | HHI.PYPN ---
Subjective Remarks Patient was seen and discussed with the hotel staff member. Patient reported that he has been feeling little better but still is worried about future and finances and his condominium. But he could be reassured. No behavior or management problem reported. He tends to isolate himself and keeps to himself. He was encouraged to participate in all the treatment activity on the floor. No side effects were complained from the medication. inpatient services director to assist him. Review of Systems Except as stated in HPI: all other systems reviewed are Neg Psychiatric: COMPLAINS OF: Mood changes, Depression Objective Alert: Yes [place]: Person, Place Mood: Anxious, Depressed Affect: Restricted Memory Intact: Immediate, Recent (mildly impaired), Remote Hallucinations: Other (denies any auditory or visual hallucination at this time ) Delusions: No Delusion Type: Other (patient seems ambivalent and confused and guarded and feels more positive) Suicidal: Ideation (passive but feels safe in the hospital and mildly hopeful) Homicidal: Ideation (denies) Insight/Judgement Limited to fair Vitals/IOs Vital Signs Date Time Temp Pulse Resp B/P Pulse Ox O2 Delivery O2 Flow Rate FiO2 11/24/16 06:09 99.0 71 18 132/82 92 Assessment & Plan Problem List: (1) Major depressive disorder, recurrent, moderate ICD Code: F33.1 Assessment & Plan Estimated LOS: days Justification for Cont. Inpt. Risk of decompensation and monitoring of the medication Request HC Surrog/Guard Advoc?: No Oracio Juárez MD Nov 24, 2016 13:36
--- NOTE | 2016-11-24 15:04 | HHI.PR ---
Subjective Remarks Follow-up visit HIV, hypertension, DM. Patient seen today. States he wants to restart his HIV medication. Denies pain and discomfort. Denies SOB/ dyspnea. Denies chestpain, palpitations, headaches, dizziness. Denies fevers, chills, n/v /d. Objective Vitals Vital Signs Date Time Temp Pulse Resp B/P Pulse Ox O2 Delivery O2 Flow Rate FiO2 11/24/16 06:09 99.0 71 18 132/82 92 11/23/16 20:00 98.6 103 18 135/83 Result Diagram: 11/22/16 1409 Objective Remarks GENERAL: This is a well-nourished, well-developed patient, in no apparent distress. SKIN: No rashes, ecchymoses or lesions. Cool and dry. EYES: EOMI No scleral icterus. No injection or drainage. CARDIOVASCULAR: Regular rate and rhythm without murmurs, gallops, or rubs. RESPIRATORY: Clear to auscultation. Breath sounds equal bilaterally. No wheezes , rales, or rhonchi. GASTROINTESTINAL: Abdomen soft, non-tender, nondistended. Bowel sounds active 4 MUSCULOSKELETAL: Extremities without clubbing, cyanosis, or edema. NEUROLOGICAL: Awake and alert. Motor and sensory grossly within normal limits. Normal speech. A/P Problem List: (1) Hypertension ICD Code: I10 Status: Chronic (2) Depression with suicidal ideation ICD Code: F32.9 Status: Acute (3) Major depressive disorder, recurrent, moderate ICD Code: F33.1 Status: Acute (4) DM type 2 (diabetes mellitus, type 2) ICD Code: E11.9 Status: Chronic (5) HTN (hypertension) ICD Code: I10 Status: Chronic Assessment and Plan Patient is a 66-year-old male with primary history of depression, HIV, hypertension, DM who came in to the hospital voluntarily for worsening depression and suicidal ideation. As per ED report, patient states that he is not eating and drinking much lately, worsening depression over the last several days, stopped taking his medications and attempt to harm himself but denies any ingestion or planning by other methods. He is now admitted to inpatient psychiatry unit for further evaluation. Consulted for medical management. Major depression, suicidal ideation - managed by psychiatry team HIV - previously refused to take home medication - Genvoya - Elvitegravir, cobicistat, emtricitabine, and tenofovir. He is being followed at outpatient by Dr. Reyes. - Will restart Genvoya. Pharmacy to convert. - Follow up with outpatient M.D. when discharged - Dr. Reyes HTN - patient given age 66, goal BP is less than < 150/90. - on Amlodipine 5mg Qday - Hydralazine 10mg Q6hrs PRN Occasional Tachycardia - possibly due to anxiety. Will continue to monitor. DM 2 - patient is taking canagloflozin/ metformin 50/500mg BID, glipizide 5mg BID. On metformin 500 twice a day, glipizide 5 mg twice a day. - Previous hemoglobin A1c 6.1 08/28/16 - Follow up with outpatient. Continue home meds when discharge. DVT prop early ambulation Stable from Hospitalist standpoint. We will sign off. Reconsult as needed. Written by Adam Marin, acting as scribe for Dr. Haines on 11/24/16 at 13: 30. The documentation accurately reflects the work performed [id number] by me on 11/24/16 at 13:30. Problem Qualifiers (1) Hypertension: Qualified Code: I10 - Essential hypertension Adam Duran Nov 24, 2016 15:04 Lilliana Haines MD Nov 25, 2016 14:36
[2016-11-24] MEDS: ARIPiprazole 15 MG TAB PO SCH (20:49)
[2016-11-24] MEDS: MIRTAZAPINE 15 MG TAB PO SCH (20:49)
[2016-11-24] MEDS: ACETAMINOPHEN 325 MG TAB PO PRN (22:06)
[2016-11-25 06:27] VITALS: BP 121/63; PULSE 76; RESP 16; TEMP 98.6
[2016-11-25] MEDS: CITALOPRAM HYDROBROMIDE 40 MG TAB PO SCH (08:58)
[2016-11-25] MEDS: amLODIPine BESYLATE 5 MG TAB PO SCH (08:58)
[2016-11-25] MEDS: [UNRECOGNIZED DRUG - OTHER] PO SCH (09:00)
[2016-11-25] MEDS: ACETAMINOPHEN 325 MG TAB PO PRN ×3 (09:45→21:30)
--- NOTE | 2016-11-25 11:17 | HHI.PYPN ---
Subjective Remarks Patient was seen and discussed with the bell staff. Patient claimed that he has been feeling little bit better and more positive and able to get out of his bed in the general dining area and was able to watch TV and laugh. Denied any suicidal ideation intentions or plan. Less negativistic thoughts overwhelming him. He feels hopeful about the future. He still is worried about finances. No behavior or management problem reported. No side effects were complained from the medication. He has been sleeping better. Continue with the same treatment Review of Systems Except as stated in HPI: all other systems reviewed are Neg Psychiatric: COMPLAINS OF: Anxiety, Mood changes, Depression, Delusions Objective Alert: Yes [place]: Person, Place Mood: Anxious, Depressed Affect: Restricted Memory Intact: Immediate, Recent (mildly impaired), Remote Hallucinations: Other (denies any auditory or visual hallucination at this time ) Delusions: No Delusion Type: Other (patient seems ambivalent and more positive.) Suicidal: Ideation (passive but feels safe in the hospital and mildly hopeful) Homicidal: Ideation (denies) Insight/Judgement Fair to limited Remarks Attention and concentration improving. Gait normal. Language normal. Fund of knowledge average Vitals/IOs Vital Signs Date Time Temp Pulse Resp B/P Pulse Ox O2 Delivery O2 Flow Rate FiO2 11/25/16 06:27 98.6 76 16 121/63 11/24/16 06:09 92 Assessment & Plan Problem List: (1) Major depressive disorder, recurrent, moderate ICD Code: F33.1 Assessment & Plan Estimated LOS: days Justification for Cont. Inpt. Monitoring and titrating the medication to help lift depression Request HC Surrog/Guard Advoc?: No Oracio Juárez MD Nov 25, 2016 11:17
[2016-11-25 18:00] VITALS: BP 132/72; PULSE 114; RESP 18; TEMP 97; O2SAT 97
[2016-11-25] MEDS: MIRTAZAPINE 15 MG TAB PO SCH (21:29)
[2016-11-26 06:01] VITALS: BP 127/62; PULSE 77; RESP 16; TEMP 97.9
[2016-11-26] MEDS: [UNRECOGNIZED DRUG - OTHER] PO SCH (09:00)
[2016-11-26] MEDS: CITALOPRAM HYDROBROMIDE 40 MG TAB PO SCH (09:55)
[2016-11-26] MEDS: amLODIPine BESYLATE 5 MG TAB PO SCH (09:55)
[2016-11-26] MEDS: ACETAMINOPHEN 325 MG TAB PO PRN ×2 (10:00→20:27)
--- NOTE | 2016-11-26 11:38 | HHI.PYPN ---
Subjective Remarks Patient was seen and discussed with the staffing coordinator. Patient reported that he has been feeling little bit better and hopeful about the future. He is not negativistic and pessimistic. His thinking is better. Patient denied any suicidal ideation intentions or plan. No behavior or management problem reported. Denied any auditory or visual hallucinations. Advised to continue with the same treatment Review of Systems Except as stated in HPI: all other systems reviewed are Neg Psychiatric: COMPLAINS OF: Mood changes, Depression Objective Alert: Yes [place]: Person, Place Mood: Anxious, Depressed Affect: Restricted Memory Intact: Immediate, Recent (mildly impaired), Remote Hallucinations: Other (denies any auditory or visual hallucination at this time ) Delusions: No Delusion Type: Other (patient seems ambivalent and more positive.) Suicidal: Ideation (passive but feels safe in the hospital and mildly hopeful) Homicidal: Ideation (denies) Insight/Judgement Fair to limited Vitals/IOs Vital Signs Date Time Temp Pulse Resp B/P Pulse Ox O2 Delivery O2 Flow Rate FiO2 11/26/16 06:01 97.9 77 16 127/62 11/25/16 18:00 97 Intake and Output 11/25/16 11/25/16 11/26/16 08:00 16:00 00:00 Intake Total 240 ml Balance 240 ml Assessment & Plan Problem List: (1) Major depressive disorder, recurrent, moderate ICD Code: F33.1 Assessment & Plan Estimated LOS: days Justification for Cont. Inpt. Risk of decompensation and monitoring of the medication Request HC Surrog/Guard Advoc?: No Oracio Juárez MD Nov 26, 2016 11:38
[2016-11-26 18:55] VITALS: BP 167/92; PULSE 100; RESP 18; O2SAT 98
[2016-11-26] MEDS: MIRTAZAPINE 15 MG TAB PO SCH (20:21)
[2016-11-27 05:48] VITALS: BP 128/68; PULSE 79; RESP 16; TEMP 97.7
[2016-11-27] MEDS: CITALOPRAM HYDROBROMIDE 40 MG TAB PO SCH (08:58)
[2016-11-27] MEDS: amLODIPine BESYLATE 5 MG TAB PO SCH (08:58)
[2016-11-27] MEDS: [UNRECOGNIZED DRUG - OTHER] PO SCH (08:58)
--- NOTE | 2016-11-27 17:59 | HHI.PYPN ---
Subjective Remarks Pt seen and discussed with staff. He remains depressed. Hygiene and self care is poor. He has been out of room more and did go out once for fresh air today. No medication side effects. He denies SI/HI. Objective Alert: Yes [place]: Person, Place Mood: Depressed Affect: Restricted Memory Intact: Immediate, Recent (mildly impaired), Remote Hallucinations: Other (denies any auditory or visual hallucination at this time ) Delusions: No Delusion Type: Other (patient seems ambivalent and more positive.) Suicidal: Ideation (passive but feels safe in the hospital and mildly hopeful) Homicidal: Ideation (denies) Insight/Judgement poor Vitals/IOs Vital Signs Date Time Temp Pulse Resp B/P Pulse Ox O2 Delivery O2 Flow Rate FiO2 11/27/16 05:48 97.7 79 16 128/68 11/26/16 18:55 98 Assessment & Plan Problem List: (1) Major depressive disorder, recurrent, moderate ICD Code: F33.1 Assessment & Plan Continue current tx plan. Estimated LOS: days Justification for Cont. Inpt. impairments in self care Request HC Surrog/Guard Advoc?: Chioma Cassidy MD Nov 27, 2016 17:59
[2016-11-27 20:00] VITALS: BP 103/73; PULSE 80; RESP 16; TEMP 98; O2SAT 94
[2016-11-27] MEDS: ACETAMINOPHEN 325 MG TAB PO PRN (20:32)
[2016-11-27] MEDS: MIRTAZAPINE 15 MG TAB PO SCH (20:32)
[2016-11-28 06:00] VITALS: BP 123/60; PULSE 71; RESP 16; TEMP 97.8
[2016-11-28] MEDS: CITALOPRAM HYDROBROMIDE 40 MG TAB PO SCH (08:09)
[2016-11-28] MEDS: amLODIPine BESYLATE 5 MG TAB PO SCH (08:09)
[2016-11-28] MEDS: [UNRECOGNIZED DRUG - OTHER] PO SCH (08:16)
--- NOTE | 2016-11-28 19:12 | HHI.PYPN ---
Subjective Remarks Pt seen and discussed with staff. Staff state that pt has been more isolative to room today and continues to struggle with ADLs. Compliant with medications. No side effects. Objective Alert: Yes [place]: Person, Place, Date, Situation Mood: Depressed Affect: Restricted Memory Intact: Immediate, Recent (mildly impaired), Remote Hallucinations: Other (denies any auditory or visual hallucination at this time ) Delusions: No Delusion Type: Other (patient seems ambivalent and more positive.) Suicidal: Ideation (passive, no plan) Homicidal: Ideation (denies) Insight/Judgement poor Vitals/IOs Vital Signs Date Time Temp Pulse Resp B/P Pulse Ox O2 Delivery O2 Flow Rate FiO2 11/28/16 06:00 97.8 71 16 123/60 11/27/16 20:00 94 Assessment & Plan Problem List: (1) Major depressive disorder, recurrent, moderate ICD Code: F33.1 Assessment & Plan Continue current tx plan.Estimated LOS: days Justification for Cont. Inpt. impairment in self care Request HC Surrog/Guard Advoc?: No Chioma Gallego MD Nov 28, 2016 19:11
[2016-11-28 21:06] VITALS: BP 142/77; PULSE 99; TEMP 98.2; O2SAT 100
[2016-11-28] MEDS: MIRTAZAPINE 15 MG TAB PO SCH (21:07)
[2016-11-29 02:00] VITALS: BP 140/70; PULSE 90; RESP 16; TEMP 98
[2016-11-29 05:30] VITALS: BP 136/71; PULSE 73; RESP 16; TEMP 97.8
[2016-11-29] MEDS: [UNRECOGNIZED DRUG - OTHER] PO SCH (09:00)
[2016-11-29] MEDS: amLODIPine BESYLATE 5 MG TAB PO SCH (09:00)
[2016-11-29] MEDS: CITALOPRAM HYDROBROMIDE 40 MG TAB PO SCH (09:00)
--- NOTE | 2016-11-29 11:50 | HHI.PYPN ---
Subjective Remarks Patient was seen and discussed with the staff assistant. Patient reported that he has been feeling much better. Denied any suicidal ideation intentions of plan he has more positive thoughts rather than negative. He feels hopeful about the future and thinking about going out to the home and work as an outpatient. No side effects were complained from the medication. He is compliant in taking medication. We will ask social economist to assist in aftercare and discharge planning Review of Systems Except as stated in HPI: all other systems reviewed are Neg Psychiatric: COMPLAINS OF: Mood changes, Depression Objective Alert: Yes [place]: Person, Place, Date, Situation Mood: Depressed Affect: Restricted Memory Intact: Immediate, Recent (mildly impaired), Remote Hallucinations: Other (denies any auditory or visual hallucination at this time ) Delusions: No Delusion Type: Other (patient seems ambivalent and more positive.) Suicidal: Ideation (denied any suicidal ideation intentions or plan) Homicidal: Ideation (denies) Insight/Judgement Improving Vitals/IOs Vital Signs Date Time Temp Pulse Resp B/P Pulse Ox O2 Delivery O2 Flow Rate FiO2 11/29/16 05:30 97.8 73 16 136/71 11/28/16 21:06 100 Assessment & Plan Problem List: (1) Major depressive disorder, recurrent, moderate ICD Code: F33.1 Assessment & Plan Estimated LOS: days Justification for Cont. Inpt. The risk for decompensation and monitoring of the medication and safety of the patient Request HC Surrog/Guard Advoc?: No Oracio Juárez MD Nov 29, 2016 11:50
[2016-11-29 19:00] VITALS: BP 138/82; PULSE 116; RESP 20; TEMP 98.9; O2SAT 97
[2016-11-29] MEDS: MIRTAZAPINE 15 MG TAB PO SCH (20:43)
[2016-11-29] MEDS: ACETAMINOPHEN 325 MG TAB PO PRN (20:48)
[2016-11-30 06:23] VITALS: BP 134/68; PULSE 73; RESP 16; TEMP 97.8
[2016-11-30] MEDS: CITALOPRAM HYDROBROMIDE 40 MG TAB PO SCH (08:53)
[2016-11-30] MEDS: amLODIPine BESYLATE 5 MG TAB PO SCH (08:53)
--- NOTE | 2016-11-30 10:49 | HHI.DS ---
Psychiatry Discharge Summary Inpatient Psychiatric care?: Yes Advance Directive: No Reason Not Provided: DENIES THE NEED Mental Health AdvanceDirective: No Health Care Proxy: No Admission Admission Date Nov 09, 2016 at 21:21 Admission Diagnosis: (1) Major depressive disorder, recurrent, moderate ICD Code: F33.1 GAF Score: 45 Brief History This is a 66-year-old white male who lives alone has a history of HIV diabetes and high blood pressure. He came came to the emergency room voluntarily for help because he has been increasingly feeling depressed frustrated lonely and isolated. He was feeling unhappy and had stopped taking all the medication in an attempt to end his life. Reportedly he does not have much in terms of the support he lives alone. He denied any plan for suicide. At times he feels helpless and hopeless and unmotivated. He feels like he has nothing to live for. For the past month or so he has no appetite he has been having difficulty sleeping. Has anhedonia. And his [id number] called the police and he came for help. At the present time patient denied any active auditory or visual hallucinations. He denies any suicidal ideation intentions or plan he reported that he made a mistake in not taking the medication his willing to take the medication. Patient claimed that he is afraid of dying. Patient denied any previous suicide attempts. Patient did not give any history of mood swings. Tobacco Use In Past 30 Days: No Tobacco Past 30 Days Alcohol Use: Never Hospital Course Patient was started was supportive treatment. He persevered in all the therapeutic activity on the floor. His medication was adjusted. He started to feel better. Denied any suicidal ideation intentions or plan he was feeling more positive and willing to take the medication and follow-up as an outpatient at that point arrangements were made for him to be discharged Results Blood Pressure 134 / 68 Vital Signs Date Time Temp Pulse Resp B/P Pulse Ox O2 Delivery O2 Flow Rate FiO2 11/30/16 06:23 97.8 73 16 134/68 11/29/16 19:00 97 Please see the EMR Summary of Major Lab Results Nothing significant Summary of Procedures None Imaging None Pending results at discharge: No Medications # of Antipsychotic meds at D/C: 1 Appropriate >1 Antipsych meds?: 2 Approp Antipsych med options 1 - Minimum of three failed multiple trials of monotherapy. Discharge Discharge Date: Nov 30, 2016 Discharge Diagnosis: (1) Major depressive disorder, recurrent, moderate Diagnosis: Principal ICD Code: F33.1 Mental Status Exam at Disch Patient was alert oriented 3 cooperative casually dressed. His speech was slow without any evidence of loose associations. His mood was described as feeling better and hopeful about the future. He denied any suicidal ideation intentions or plan. He denied any auditory or visual hallucinations. Willing to take the medication and follow-up as an outpatient Pt Condition on Discharge: Stable Discharge Disposition: Discharge Home Discharge Instructions Diet Instructions: As Tolerated, No Restrictions Activities you can perform: Regular-No Restrictions Scheduled Appointment: [facility] Discharge Time <= 30 minutes Discharge/Advance Care Plan Health Problems: (1) Major depressive disorder, recurrent, moderate Goals to promote your health * To prevent worsening of your condition and complications * To maintain your health at the optimal level Directions to meet your goals Take your medications as prescribed Follow your dietary instruction Follow activity as directed Keep your appointments as scheduled Take your immunizations and boosters as scheduled If your symptoms worsen call your PCP, if no PCP go to Urgent Care Center or Emergency Room For 30/05 questions related to your inpatient stay or results of tests pending at discharge, please contact Dr. Oracio Juárez at Smoking is Dangerous to Your Health. Avoid second hand smoking Oracio Juárez MD Nov 30, 2016 10:49
[2016-11-30] MEDS ORDERED: CELE40TA PO (10:51)
[2016-11-30] MEDS ORDERED: MIRTA15 PO (10:51)
[2016-11-30] MEDS ORDERED: ARIP1TAB7 PO (10:51)
== END 2016-11-30 13:20 | disposition home or self-care (01) | DRG 885 ==
LOC: NEPE 11:47 → NEDA 21:21 → H260 22:38
PROVIDERS: ADMIT Psychiatry & Neurology Psychiatry; ATTEND Psychiatry & Neurology Psychiatry
DX: F33.1 Major depressive disorder, recurrent, moderate (principal); E11.9 Type 2 diabetes mellitus without complications; R45.851 Suicidal ideations; I10 Essential (primary) hypertension; Z79.84 Long term (current) use of oral hypoglycemic drugs; E78.5 Hyperlipidemia, unspecified; E07.9 Disorder of thyroid, unspecified; Z21 Asymptomatic human immunodeficiency virus [HIV] infection status
CPT/HCPCS: 80048; 80053; 80076; 80307; 80320; 80329; 85025; 96360; G0480; G0481; J7030